=== PATIENT | male | born 2000 | race Caucasian/White ===

== ENCOUNTER 2019-10-13 12:22 | Emergency (ER) | payer SELFPAY ==
[~2019-10-13] VITALS: Ht 182.9 cm; Wt 88.6 kg
[2019-10-13 12:26] VITALS: Ht 182.9 cm; Wt 88.6 kg
[2019-10-13] MEDS ORDERED: KEFLEX500 MG PO (13:20)
[2019-10-13 13:26] LABS: APPEARANCE CLEAR (CLEAR); BACTERIA FEW /hpf (NEGATIVE); BILIRUBIN NEGATIVE (NEGATIVE); COLOR YELLOW (YELLOW); EPITHELIAL CELLS OCC /hpf (0-5); GLUCOSE NEGATIVE (NEGATIVE); KETONE NEGATIVE (NEGATIVE); NITRITE NEGATIVE (NEGATIVE); PROTEIN NEGATIVE (NEGATIVE); RED CELLS - URINE RARE /hpf (0-5); WHITE CELLS - URINE OCC /hpf (NEGATIVE)
[2019-10-13 13:46] VITALS: BP 115/68
== END 2019-10-13 13:47 | disposition home or self-care (01) ==
LOC: D.ER 12:22
PROVIDERS: Emergency Medicine
DX: J02.0 Streptococcal pharyngitis (principal); R10.9 Unspecified abdominal pain; Z72.0 Tobacco use